=== PATIENT | female | born 1995 | race African-American/Black ===

== ENCOUNTER 2018-10-12 16:18 | Emergency (ER) | payer SELFPAY ==
--- NOTE | 2018-10-12 17:17 | ER Document Report ---
ED Medical Screen (RME) - General Chief Complaint: Vag Bleeding, +preg <12wks Stated Complaint: VAGINAL BLEEDING Time Seen by Provider: 10/12/18 17:13 Mode of Arrival: Ambulatory Information source: Patient Notes: Patient presents emergency department with complaints of G2, P0 with vaginal bleeding that started today. Started as off as a brown color and now red. Reports had some abdominal cramping earlier today none right now. I have greeted and performed a rapid initial assessment of this patient. A comprehensive ED assessment and evaluation of the patient, analysis of test results and completion of the medical decision making process will be conducted by additional ED providers. Dictation of this chart was performed using voice recognition software; therefore, there may be some unintended grammatical errors. TRAVEL OUTSIDE OF THE [place] IN LAST 30 DAYS: No - Related Data Allergies/Adverse Reactions: No Known Allergies Allergy (Verified 10/12/18 16:18) Past Medical History - General Last Menstrual Period: August 29 - Social History Chew tobacco use (# tins/day): No Frequency of alcohol use: None Drug Abuse: None Renal/ Medical History: Denies: Hx Peritoneal Dialysis - Immunizations Hx Diphtheria, Pertussis, Tetanus Vaccination: Yes Physical Exam - Vital signs Vitals: Temp Pulse Resp BP Pulse Ox 98.6 F 88 20 125/74 97 10/12/18 16:25 10/12/18 16:25 10/12/18 16:25 10/12/18 16:25 10/12/18 16:25 Course - Vital Signs Vital signs: Temp Pulse Resp BP Pulse Ox 98.6 F 88 20 125/74 97 10/12/18 16:25 10/12/18 16:25 10/12/18 16:25 10/12/18 16:25 10/12/18 16:25
[2018-10-12 17:52] LABS: ABSOLUTE BASOPHILS # (AUTO) 0.1 10^3/uL (0.0-0.2); ABSOLUTE EOSINOPHILS # (AUTO) 0.1 10^3/uL (0.0-0.6); ABSOLUTE LYMPHOCYTES (AUTO) 1.4 10^3/uL (0.5-4.7); ABSOLUTE MONOCYTES (AUTO) 0.5 10^3/uL (0.1-1.4); ABSOLUTE NEUT (AUTO) 4.9 10^3/uL (1.7-8.2); BASOPHILS % (AUTO) 0.8 % (0-2); EOSINOPHILS % (AUTO) 1.1 % (0-6); HEMATOCRIT 33.8 % (36.0-47.0); HEMOGLOBIN 10.9 g/dL (12.0-15.5); LYMPHOCYTES % (AUTO) 20.6 % (13-45); MEAN CORPUSCULAR HEMOGLOBIN 23.3 pg (27.0-33.4); MEAN CORPUSCULAR HGB CONC 32.2 g/dL (32.0-36.0); MEAN CORPUSCULAR VOLUME 72 fl (80-97); MONOCYTES % (AUTO) 7.3 % (3-13); PLATELET COUNT 359 10^3/uL (150-450); RED BLOOD COUNT 4.68 10^6/uL (3.72-5.28); RED CELL DISTRIBUTION WIDTH 18.2 % (11.5-14.0); SEGMENTED NEUTROPHILS % (AUTO) 70.2 % (42-78); TOTAL CELLS COUNTED % (AUTO) 100 %; WHITE BLOOD COUNT 6.9 10^3/uL (4.0-10.5)
[2018-10-12 18:04] LABS: APPEARANCE,URINE CLEAR; BILIRUBIN,URINE NEGATIVE (NEGATIVE); COLOR,URINE YELLOW; GLUCOSE, URINE NEGATIVE (NEGATIVE); KETONES,URINE 20 mg/dL (NEGATIVE); LEUKOCYTE ESTERASE,URINE NEGATIVE (NEGATIVE); NITRITE,URINE NEGATIVE (NEGATIVE); PROTEIN,URINE NEGATIVE (NEGATIVE); UROBILINOGEN,URINE NEGATIVE mg/dL (<2.0)
[2018-10-12 18:08] LABS: ALANINE AMINOTRANSFERASE 28 U/L (9-52); ALBUMIN 4.6 g/dL (3.5-5.0); ALKALINE PHOSPHATASE 85 U/L (38-126); ANION GAP 10 (5-19); ASPARTATE AMINO TRANSFERASE 19 U/L (14-36); BILIRUBIN,DIRECT 0.2 mg/dL (0.0-0.4); BILIRUBIN,TOTAL 0.3 mg/dL (0.2-1.3); BLOOD UREA NITROGEN 9 mg/dL (7-20); CALCIUM 9.4 mg/dL (8.4-10.2); CARBON DIOXIDE 25 mmol/L (22-30); CHLORIDE 103 mmol/L (98-107); GLUCOSE 81 mg/dL (75-110); SODIUM 138.4 mmol/L (137-145); TOTAL PROTEIN 7.4 g/dL (6.3-8.2)
--- NOTE | 2018-10-12 18:47 | RADIOLOGY REPORT (SQ) ---
EXAM DESCRIPTION: U/S OB TRANSVAGINAL W/O DOP COMPLETED DATE/TIME: 10/12/2018 6:21 pm REASON FOR STUDY: Preg bleeding, LMP AUGUST 29 COMPARISON: None. TECHNIQUE: Transvaginal static and realtime grayscale images acquired of the pelvis. Additional roseanne cted spectral and color Doppler images recorded. All images stored on PACs. LIMITATIONS: None. FINDINGS: FETUS: Single Living intrauterine . EGA: 6 weeks 0 days. ULTRASOUND ARTI: 06/07/2019 CRL: 0.4 cm FHR: 117 beats per minute. YOLK SAC: Yolk sac measures 0.3 x 0.3 x 0.4 cm. GESTATIONAL SAC: Gestation sac was visualized. RIGHT OVARY: The right ovary measures 3.2 x 2.5 x 2.4 cm. Doppler flow noted. LEFT OVARY: The left ovary is nonvisualized. UTERUS: The uterus is visualized measuring 7.7 x 4.9 x 6.3 cm demonstrating normal echogenicity. CERVICAL LENGTH: The cervix measures 3.2 cm. Closed. FREE FLUID: None. IMPRESSION: LIVING INTRAUTERINE . EGA 6 weeks 0 days. Trimester of : First - 0 to 13 weeks. TECHNICAL DOCUMENTATION: JOB ID: [id number] [employer]- All Rights Reserved rev-08/31 Reading location - IP/workstation name: [email or web address]
--- NOTE | 2018-10-12 19:49 | ER Document Report ---
ED General - General Chief Complaint: Vag Bleeding, +preg <12wks Stated Complaint: VAGINAL BLEEDING Time Seen by Provider: 10/12/18 17:13 Mode of Arrival: Ambulatory Notes: Patient is a 23-year-old female G2, P0 at 6 weeks by LMP who presents with complaints of lower abdominal cramping and a small amount of vaginal bleeding. Describes it as a brownish spotting that has become somewhat bright over the last several hours. States that it is a small amount of bleeding than a typical menstrual cycle. She describes the discomfort to her lower abdomen as being an intermittent, mild, cramping discomfort. Nothing seems to improve or worsen this discomfort or bleeding. No history of similar symptoms during this pre gnancy. No trauma to the abdomen. No fever or constitutional symptoms. She has not yet established care for this . She denies dysuria. TRAVEL OUTSIDE OF THE [place] IN LAST 30 DAYS: No - Related Data Allergies/Adverse Reactions: No Known Allergies Allergy (Verified 10/12/18 16:18) Past Medical History - General Information source: Patient Last Menstrual Period: August 29 - Social History Smoking Status: Never Smoker Chew tobacco use (# tins/day): No Frequency of alcohol use: None Drug Abuse: None Lives with: Spouse/Significant other Family History: Reviewed & Not Pertinent Patient has suicidal ideation: No Patient has homicidal ideation: No Renal/ Medical History: Denies: Hx Peritoneal Dialysis - Immunizations Hx Diphtheria, Pertussis, Tetanus Vaccination: Yes Review of Systems - Review of Systems Notes: Constitutional: Negative for fever. HENT: Negative for sore throat. Eyes: Negative for visual changes. Cardiovascular: Negative for chest pain. Respiratory: Negative for shortness of breath. Gastrointestinal: Positive for abdominal cramping Genitourinary: Positive for vaginal bleeding Musculoskeletal: Negative for back pain. Skin: Negative for rash. Neurological: Negative for headaches, weakness or numbness. 10 point ROS negative except as marked above and in HPI. Physical Exam - Vital signs Vitals: Temp Pulse Resp BP Pulse Ox 98.6 F 88 20 125/74 97 10/12/18 16:25 10/12/18 16:25 10/12/18 16:25 10/12/18 16:25 10/12/18 16:25 Interpretation: Normal Notes: PHYSICAL EXAMINATION: GENERAL: Well-appearing, well-nourished and in no acute distress. HEAD: Atraumatic, normocephalic. EYES: Pupils equal round and reactive to light, extraocular movements intact, sclera anicteric, conjunctiva are normal. ENT: nares patent, oropharynx clear without exudates. Moist mucous membranes. NECK: Normal range of motion, supple without lymphadenopathy LUNGS: Breath sounds clear to auscultation bilaterally and equal. No wheezes rales or rhonchi. HEART: Regular rate and rhythm without murmurs ABDOMEN: Soft, nontender, normoactive bowel sounds. No guarding, no rebound. No masses appreciated. EXTREMITIES: Normal range of motion, no pitting or edema. No cyanosis. NEUROLOGICAL: No focal neurological deficits. Moves all extremities spontaneously and on command. PSYCH: Normal mood, normal affect. SKIN: Warm, Dry, normal turgor, no rashes or lesions noted. Course - Re-evaluation Re-evalutation: 10/12/18 19:42 Patient presents with a mild amount of vaginal bleeding in the setting of a first trimester . Ultrasound does demonstrate a viable intrauterine with active heart rate. No active bleeding at time of presentation. She is Rh negative and RhoGam has been administered. Patient's abdominal exam is otherwise benign without any focal tenderness. I do not suspect an acute appendicitis, pyelonephritis, cystitis, or bowel obstruction. At this time will discharge with return precautions and follow-up recommendations. Verbal discharge instructions given a the bedside and opportunity for questions given. Medication warnings reviewed. Patient is in agreement with this plan and has verbalized understanding of return precautions and the need for primary care follow-up in the next 24-72 hours. - Vital Signs Vital signs: Temp Pulse Resp BP Pulse Ox 98.6 F 88 20 125/74 97 10/12/18 16:25 10/12/18 16:25 10/12/18 16:25 10/12/18 16:25 10/12/18 16:25 - Laboratory Result Diagrams: 10/12/18 17:34 10/12/18 17:34 Laboratory results interpreted by me: 10/12/18 10/12/18 10/12/18 17:34 17:34 17:34 Hgb 10.9 L Hct 33.8 L MCV 72 L MCH 23.3 L RDW 18.2 H Beta HCG, Quant 1506.10 H Urine Ketones 20 H Urine Blood SMALL H - Diagnostic Test Radiology reviewed: Reports reviewed Discharge - Discharge Clinical Impression: First trimester Hemorrhage Qualifiers: Trimester: first trimester Qualified Code(s): O20.9 - Hemorrhage in early , unspecified Condition: Good Disposition: HOME, SELF-CARE Additional Instructions: Your ultrasound today shows a living intrauterine . Please follow closely with your primary care NUCLEAR SECURITY OFFICER. Please return if you develop severe abdominal pain, bleeding that goes through more than 2 pads for more than 2 hours, pass out, or have any other symptoms that are concerning to you. Please follow-up closely with your OBGYN regarding todays visit.
[2018-10-12 23:03] VITALS: BP 141/87
== END 2018-10-12 21:30 | disposition home or self-care (01) ==
LOC: ER 16:18
DX: O20.9 Hemorrhage in early pregnancy, unspecified (principal); O26.891 Other specified pregnancy related conditions, first trimester; R10.30 Lower abdominal pain, unspecified; Z3A.01 Less than 8 weeks gestation of pregnancy
CPT/HCPCS: 99284; 96372; 86900; 86901; 36415; 86850; 84702; 85025; 80053; 81001; 76817; J2790

== ENCOUNTER 2018-10-14 17:57 | Emergency (ER) | payer SELFPAY ==
--- NOTE | 2018-10-14 19:40 | ER Document Report ---
ED Medical Screen (RME) - General Chief Complaint: Vag Bleeding, +preg <12wks Stated Complaint: ABDOMINAL CRAMPING Time Seen by Provider: 10/14/18 19:38 Mode of Arrival: Ambulatory Information source: Patient Notes: Patient presents G2, P0 with concerns about vaginal bleeding and cramping. Patient is concerned that she may have miscarried. Patient states that she fell what appeared to be a gestational sac. I have greeted and performed a rapid initial assessment of this patient. A comprehensive ED assessment and evaluation of the patient, analysis of test results and completion of the medical decision making process will be conducted by additional ED providers. TRAVEL OUTSIDE OF THE [place] IN LAST 30 DAYS: No - Related Data Allergies/Adverse Reactions: No Known Allergies Allergy (Verified 10/14/18 17:58) Past Medical History Renal/ Medical History: Denies: Hx Peritoneal Dialysis - Immunizations Hx Diphtheria, Pertussis, Tetanus Vaccination: Yes Physical Exam - Vital signs Vitals: Temp Pulse Resp BP Pulse Ox 98.7 F 94 16 125/82 100 10/14/18 18:10 10/14/18 18:10 10/14/18 18:10 10/14/18 18:10 10/14/18 18:10 - Abdominal Tenderness: Tender - Lower pelvic Course - Vital Signs Vital signs: Temp Pulse Resp BP Pulse Ox 98.7 F 94 16 125/82 100 10/14/18 18:10 10/14/18 18:10 10/14/18 18:10 10/14/18 18:10 10/14/18 18:10
--- NOTE | 2018-10-14 21:01 | RADIOLOGY REPORT (SQ) ---
EXAM DESCRIPTION: [facility]: US TRANSVAGINAL CLINICAL HISTORY: 23 years Female; pelvic pain, vag bleeding TECHNIQUE: Endovaginal pelvic ultrasound was performed. COMPARISON: 10/12/2018 FINDINGS: Uterus: 7.8 x 5 x 4.6 cm. There is no intrauterine gestational sac. No uterine masses. Cervix is 3 cm long Right ovary: 1.6 x 1.7 x 2.6 cm. Normal vascular flow on Doppler. Left ovary: Not visualized. No free fluid. No adnexal masses. IMPRESSION: 1. No intrauterine gestational sac or other discrete intrauterine structures. 2. Normal right ovary 3. Left ovary could not be visualized due to bowel gas.
[2018-10-14 21:36] LABS: ABSOLUTE EOSINOPHILS # (AUTO) 0.1 10^3/uL (0.0-0.6); ABSOLUTE LYMPHOCYTES (AUTO) 1.7 10^3/uL (0.5-4.7); ABSOLUTE MONOCYTES (AUTO) 0.6 10^3/uL (0.1-1.4); ABSOLUTE NEUT (AUTO) 5.7 10^3/uL (1.7-8.2); BASOPHILS % (AUTO) 0.6 % (0-2); EOSINOPHILS % (AUTO) 1.3 % (0-6); HEMATOCRIT 35.1 % (36.0-47.0); HEMOGLOBIN 11.2 g/dL (12.0-15.5); LYMPHOCYTES % (AUTO) 21.1 % (13-45); MEAN CORPUSCULAR HEMOGLOBIN 23.5 pg (27.0-33.4); MEAN CORPUSCULAR HGB CONC 32.1 g/dL (32.0-36.0); MEAN CORPUSCULAR VOLUME 73 fl (80-97); MONOCYTES % (AUTO) 7.3 % (3-13); PLATELET COUNT 387 10^3/uL (150-450); RED BLOOD COUNT 4.79 10^6/uL (3.72-5.28); RED CELL DISTRIBUTION WIDTH 18.3 % (11.5-14.0); SEGMENTED NEUTROPHILS % (AUTO) 69.7 % (42-78); TOTAL CELLS COUNTED % (AUTO) 100 %; WHITE BLOOD COUNT 8.2 10^3/uL (4.0-10.5)
--- NOTE | 2018-10-15 00:15 | ER Document Report ---
ED General - General Chief Complaint: Vag Bleeding, +preg <12wks Stated Complaint: ABDOMINAL CRAMPING Time Seen by Provider: 10/14/18 19:38 Mode of Arrival: Ambulatory Notes: Patient is a 23-year-old female G2, P0 at 6 weeks by LMP who presents with complaints of lower abdominal cramping and a increasing vaginal bleeding. Was seen in the emergency department 2 days ago for the same states the bleeding has become much heavier and she is having increasing cramping. She describes the discomfort to her lower abdomen as being an intermittent, mild, cramping discomfort. Nothing seems to improve or worsen this discomfort or bleeding. No trauma to the abdomen. No fever or constitutional symptoms. She has not yet established care for this . She denies dysuria. Patient is concerned that she is having an acute miscarriage TRAVEL OUTSIDE OF THE [place] IN LAST 30 DAYS: No - Related Data Allergies/Adverse Reactions: No Known Allergies Allergy (Verified 10/14/18 17:58) Past Medical History - General Information source: Patient Last Menstrual Period: August, - Social History Smoking Status: Never Smoker Frequency of alcohol use: None Drug Abuse: None Lives with: Spouse/Significant other Family History: Reviewed & Not Pertinent Patient has suicidal ideation: No Patient has homicidal ideation: No Renal/ Medical History: Denies: Hx Peritoneal Dialysis - Immunizations Hx Diphtheria, Pertussis, Tetanus Vaccination: Yes Review of Systems - Review of Systems Notes: Constitutional: Negative for fever. HENT: Negative for sore throat. Eyes: Negative for visual changes. Cardiovascular: Negative for chest pain. Respiratory: Negative for shortness of breath. Gastrointestinal: Positive for lower abdominal cramping Genitourinary: Positive vaginal bleeding Musculoskeletal: Negative for back pain. Skin: Negative for rash. Neurological: Negative for headaches, weakness or numbness. 10 point ROS negative except as marked above and in HPI. Physical Exam - Vital signs Vitals: Temp Pulse Resp BP Pulse Ox 98.7 F 94 16 125/82 100 10/14/18 18:10 10/14/18 18:10 10/14/18 18:10 10/14/18 18:10 10/14/18 18:10 Interpretation: Normal Notes: PHYSICAL EXAMINATION: GENERAL: Well-appearing, well-nourished and in no acute distress. HEAD: Atraumatic, normocephalic. EYES: Pupils equal round and reactive to light, extraocular movements intact, sclera anicteric, conjunctiva are normal. ENT: nares patent, oropharynx clear without exudates. Moist mucous membranes. NECK: Normal range of motion, supple without lymphadenopathy LUNGS: Breath sounds clear to auscultation bilaterally and equal. No wheezes rales or rhonchi. HEART: Regular rate and rhythm without murmurs ABDOMEN: Soft, nontender, normoactive bowel sounds. No guarding, no rebound. No masses appreciated. EXTREMITIES: Normal range of motion, no pitting or edema. No cyanosis. NEUROLOGICAL: No focal neurological deficits. Moves all extremities spontaneously and on command. PSYCH: Normal mood, normal affect. SKIN: Warm, Dry, normal turgor, no rashes or lesions noted. Course - Re-evaluation Re-evalutation: 10/15/18 00:13 Patient presents with a falling hCG, no longer visualizing intrauterine and repeat ultrasound consistent with a miscarriage. Advised the patient of these findings. Abdominal exam is very benign. No signs or symptoms to suggest endometritis. Do not suspect PID or alternative life threatening pathology. History, vitals, labs otherwise very reassuring. Do not suspect clinically significant anemia or large volume hemorrhage. At this time will discharge with return precautions and follow-up recommendations. Verbal discharge instructions given a the bedside and opportunity for questions given. Medication warnings reviewed. Patient is in agreement with this plan and has verbalized understanding of return precautions and the need for primary care follow-up in the next 24-72 hours. - Vital Signs Vital signs: Temp Pulse Resp BP Pulse Ox 98.7 F 94 16 125/82 100 10/14/18 18:10 10/14/18 18:10 10/14/18 18:10 10/14/18 18:10 10/14/18 18:10 - Laboratory Result Diagrams: 10/14/18 20:50 Laboratory results interpreted by me: 10/14/18 10/14/18 20:50 20:50 Hgb 11.2 L Hct 35.1 L MCV 73 L MCH 23.5 L RDW 18.3 H Beta HCG, Quant 916.42 H - Diagnostic Test Radiology reviewed: Reports reviewed Discharge - Discharge Clinical Impression: Complete miscarriage, Bilateral lower abdominal cramping Condition: Good Disposition: HOME, SELF-CARE Additional Instructions: Your work-up today unfortunately suggests that you are having a miscarriage. There is no longer an intrauterine and your hormone levels are falling. Please follow-up with your primary doctor or AUTO DAMAGE ESTIMATOR within the next several days. Return immediately if you worsening pain, you began bleeding through more than 2 pads per hour for more than 3 hours, you pass out, have persistent vomiting, develop a fever greater than 100.4F, or any other symptoms that are concerning to you.
[2018-10-15 00:22] VITALS: BP 114/73
== END 2018-10-15 00:24 | disposition home or self-care (01) ==
LOC: ER 17:57
DX: O03.9 Complete or unspecified spontaneous abortion without complication (principal); R10.30 Lower abdominal pain, unspecified
CPT/HCPCS: 36415; 76817; 84702; 85025; 93976; 99284